=== PATIENT | female | born 1945 | race Caucasian/White ===

== ENCOUNTER 2017-09-13 13:49 | Inpatient (IN) | payer OTHER ==
[2017-09-13] MEDS ORDERED: EPINEPHrine SYRINGE 1 MG/10 ML SYRINGE (14:00)
[2017-09-13] MEDS: PIPERACILLIN/TAZOBACTAM 3.375 GM in IV NORMAL SALINE 50ML 50 ML IV (14:00)
[2017-09-13] MEDS ORDERED: SODIUM BICARB ADULT 8.4% 50 MEQ/50 ML DISP.SYRIN. (14:00)
[2017-09-13 14:25] LABS: AGAP ISTAT 17 mmol/L (6-14); BUN ISTAT 24 mg/dL (8-26); CHLORIDE ISTAT 108 mmol/L (98-110); CREATININE ISTAT 1.4 mg/dL (0.5-1.4); GLUCOSE ISTAT 236 mg/dL (70-99); HEMATOCRIT ISTAT 35 % (36-40); HEMOGLOBIN ISTAT 11.9 g/dL (12-15); ION CA ISTAT 1.18 mmol/L (1.13-1.32); POTASSIUM ISTAT 5.4 mmol/L (3.5-5.0); SODIUM ISTAT 137 mmol/L (135-145); TOT CO2 ISTAT 18 mmol/L (23-32)
[2017-09-13] MEDS ORDERED: PIP/TAZO PER PHARMACY MC (14:30)
[2017-09-13 14:31] LABS: BASO # 0.1 x10^3/uL (0.0-0.2); BASO % 0 % (0-3); EOS # 0.1 x10^3/uL (0.0-0.7); EOS % 1 % (0-3); HEMATOCRIT 36.3 % (36.0-47.0); HEMOGLOBIN 10.7 g/dL (12.0-15.5); LYMPH # 1.7 x10^3/uL (1.0-4.8); LYMPH % 12 % (24-48); MEAN CORPUSCULAR HEMOGLOBIN 29 pg (25-35); MEAN CORPUSCULAR HGB CONC 30 g/dL (31-37); MEAN CORPUSCULAR VOLUME 100 fL (79-100); MONO # 0.3 x10^3/uL (0.0-1.1); MONO % 2 % (0-9); NEUT # 12.2 x10^3uL (1.8-7.7); NEUT % 85 % (31-73); PLATELET COUNT 239 x10^3/uL (140-400); RED BLOOD COUNT 3.65 x10^6/uL (3.50-5.40); RED CELL DISTRIBUTION WIDTH 17.9 % (11.5-14.5); WHITE BLOOD COUNT 14.3 x10^3/uL (4.0-11.0)
[2017-09-13 14:40] LABS: INR 4.2 (0.8-1.1); PROTHROMBIN TIME PATIENT 38.2 SEC (11.7-14.0)
[2017-09-13 14:44] LABS: ANION GAP 18 (6-14); BLOOD UREA NITROGEN 18 mg/dL (7-20); BUN/CREATININE RATIO 11 (6-20); CARBON DIOXIDE 19 mmol/L (21-32); CHLORIDE 103 mmol/L (98-107); CREATININE 1.6 mg/dL (0.6-1.0); GFR 31.5; GLUCOSE 238 mg/dL (70-99); POTASSIUM 5.3 mmol/L (3.5-5.1); SODIUM 140 mmol/L (136-145)
[2017-09-13 14:48] LABS: ADD MAN DIFF? YES
[2017-09-13] MEDS: SODIUM BICARB ADULT 8.4% 50 MEQ/50 ML DISP.SYRIN. IV ×2 (14:54→16:35)
[2017-09-13] MEDS: IV NORMAL SALINE 1000ML BAG 1,000 ML IV ×2 (14:54→16:28)
[2017-09-13 14:58] LABS: ALBUMIN 2.5 g/dL (3.4-5.0); ALBUMIN/GLOBULIN RATIO 0.8 (1.0-1.7); ALK PHOS 101 U/L (46-116); AST (SGOT) 341 U/L (15-37); MAGNESIUM 1.6 mg/dL (1.8-2.4); TOTAL BILIRUBIN 0.6 mg/dL (0.2-1.0); TOTAL PROTEIN 5.5 g/dL (6.4-8.2)
[2017-09-13 15:05] LABS: TROPONINI 0.357 ng/mL (0.000-0.055)
[2017-09-13 15:13] LABS: % BANDS 15 % (0-9); % EOS 1 % (0-5); % LYMPHS 16 % (24-48); % METAS 1 % (0-0); % MONOS 2 % (0-10); % MYELOS 1 % (0-0); % SEGS 64 % (35-66); NUCLEATED RBC 1
[2017-09-13 15:15] LABS: ANISOCYTOSIS SLIGHT; PLT ESTIMATE ADEQUATE (ADEQUATE); POLYCHROMASIA SLIGHT; TOXIC GRANULATION SLIGHT
[2017-09-13] MEDS: NOREPINEPHRIN PREMIX 250 ML IV (15:15)
[2017-09-13 15:16] LABS: LACTIC ACID 10.5 mmol/L (0.4-2.0)
[2017-09-13 15:25] LABS: PARTIAL THROMBOPLASTIN TIME 46 SEC (24-38)
[2017-09-13 15:27] LABS: ALT (SGPT) 294 U/L (14-59)
[2017-09-13 15:41] LABS: DIRECT BILIRUBIN 0.1 mg/dL (0.0-0.2)
[2017-09-13 15:41] LABS: AMYLASE 53 U/L (25-115); LIPASE 183 U/L (73-393); PHOSPHORUS 7.2 mg/dL (2.6-4.7)
[2017-09-13] MEDS ORDERED: DEXTROSE 50% 25 GM / 50ML DISP.SYRIN. IV (15:45)
[2017-09-13 15:58] LABS: CKMB INDEX 1.4 % (0-4); CREATINE KINASE 142 U/L (26-192)
[2017-09-13 16:23] LABS: BASE EXCESS ABG -14 mmol/L (-3-3); HCO3 ABG 14 mmol/L (21-28); PCO2 ABG 40 mmHg (35-46); PO2 ABG 227 mmHg (65-108); SAT O2 ABG 99 % (92-99)
[2017-09-13] MEDS: methylPREDNISolone SOD SUCC PF 125 MG/2 ML VIAL. IV (16:26)
[2017-09-13] MEDS: VECURONIUM BOLUS 10 MG VIAL. IV (16:27)
[2017-09-13] MEDS ORDERED: EPINEPHrine VIAL 8 MG in IV NORMAL SALINE 250ML 250 ML IV (16:30)
[2017-09-13 16:45] LABS: IONIZED CALCIUM 1.04 mmol/L (1.13-1.32)
[2017-09-13] MEDS: INSULIN ASPART 300 UNITS/3 ML INSULN.PEN SQ (16:45)
[2017-09-13 16:46] LABS: POC GLUCOSE 177 mg/dL (70-99)
[2017-09-13] MEDS: VANCOMYCIN 2 GM in IV DEXTROSE 5% 500 ML IV (17:03)
[2017-09-13] MEDS: IPRATRPIUM/ALBUTEROL 0.5/2.5MG 3 ML NEBU. NEB ×2 (17:05→17:06)
[2017-09-13] MEDS: VANCOMYCIN PER PHARMACY MC (17:39)
[2017-09-13] MEDS ORDERED: MORPHINE SULFATE 4 MG/ML DISP.SYRIN. IV (18:00)
[2017-09-13] MEDS ORDERED: MORPHINE SULFATE 2 MG/ML DISP.SYRIN. IV (18:00)
[2017-09-13] MEDS ORDERED: PIPERACILLIN/TAZOBACTAM 3.375 GM in IV NORMAL SALINE 50ML 50 ML IV (18:00)
[2017-09-13] MEDS ORDERED: MAGNESIUM SULFATE 2GM 50 ML IV (18:00)
[2017-09-13 18:18] LABS: PH ABG 7.17 (7.35-7.45)
[2017-09-13 18:19] LABS: FIO2 ABG 100
[2017-09-13] MEDS ORDERED: BUDESONIDE 0.5 MG/2 ML NEBU. NEB (20:00)
[2017-09-13] MEDS ORDERED: IPRATRPIUM/ALBUTEROL 0.5/2.5MG 3 ML NEBU. NEB (20:00)
[2017-09-13 20:46] LABS: POC GLUCOSE 135 mg/dL (70-99)
[2017-09-13] MEDS ORDERED: ENOXAPARIN 40 MG/0.4 ML SYRINGE. SQ (21:00)
[2017-09-13] MEDS ORDERED: methylPREDNISolone SOD SUCC PF 40 MG/ML VIAL. IV (21:00)
[2017-09-14] MEDS ORDERED: VANCOMYCIN 1.25 GM in IV DEXTROSE 5 %-0.2 % NACL 250 ML IV (17:00)
== END 2017-09-13 20:02 | disposition expired | DRG 296 ==
LOC: ER 13:49 → 1 WEST ICU 14:30
PROVIDERS: Internal Medicine
PROC: 5A12012 Performance of Cardiac Output, Single, Manual (ICD-10-PCS; principal; 2017-09-13)
PROC: 5A1935Z Respiratory Ventilation, Less than 24 Consecutive Hours (ICD-10-PCS; 2017-09-13)
PROC: 02HV33Z Insertion of Infusion Device into Superior Vena Cava, Percutaneous Approach (ICD-10-PCS; 2017-09-13)
PROC: 0BH17EZ Insertion of Endotracheal Airway into Trachea, Via Natural or Artificial Opening (ICD-10-PCS; 2017-09-13)
DX: I46.9 Cardiac arrest, cause unspecified (principal); E43 Unspecified severe protein-calorie malnutrition; G93.1 Anoxic brain damage, not elsewhere classified; R56.9 Unspecified convulsions; E87.2 Acidosis; E87.5 Hyperkalemia; I50.9 Heart failure, unspecified; I11.0 Hypertensive heart disease with heart failure; E11.9 Type 2 diabetes mellitus without complications; I48.91 Unspecified atrial fibrillation; F03.90 Unspecified dementia, unspecified severity, without behavioral disturbance, psychotic disturbance, mood disturbance, and anxiety; Z68.24 Body mass index [BMI] 24.0-24.9, adult; E66.9 Obesity, unspecified; J44.9 Chronic obstructive pulmonary disease, unspecified; Z66 Do not resuscitate; Z95.0 Presence of cardiac pacemaker
CPT/HCPCS: 31500; 36415; 36556; 36600; 51702; 70450; 71045; 80047; 80053; 82150; 82248; 82310; 82553; 82805; 82962; 83605; 83690; 83735; 84100; 84484; 85007; 85025; 85610; 85730; 87040; 93005; 94002; 94640; 96365; 99291-25; J0171; J1815; J1953; J2543; J2930; J3370; J7030; J7620